=== PATIENT | female | born 1940 | race Hispanic/Latino ===

== ENCOUNTER 2021-07-24 13:28 | Inpatient (IN) | payer MEDICARE, OTHER ==
[~2021-07-24] VITALS: Ht 149.9 cm; Wt 53.5 kg
[~2021-07-24 13:28] MED LIST: ANASTROZOLE1 MG PO; OMEPRAZOLE40 MG PO; PAROXETINE HCL10 MG PO; PRAVASTATIN SOD40 MG PO
[2021-07-24 14:19] LABS: BASOPHILS % 0.3 % (0.0-1.0); EOSINOPHILS % 0.3 % (0.0-6.0); HEMATOCRIT 29.3 % (34.2-44.1); HEMOGLOBIN 8.8 g/dL (12.0-16.0); LYMPHOCYTES # (AUTO) 1.1 (1.0-3.2); LYMPHOCYTES % 18.2 % (18.0-39.1); MEAN CORPUSCULAR HEMOGLOBIN 23.1 pg (28-32); MEAN CORPUSCULAR VOLUME 76.9 fL (81-99); MONOCYTES # (AUTO) 0.7 (0.2-0.8); MONOCYTES % 11.2 % (4.4-11.3); NEUTROPHILS # (AUTO) 4.2 (2.1-6.9); NEUTROPHILS % 69.7 % (38.7-80.0); PLATELET COUNT 292 x10e3/uL (140-360); RED BLOOD COUNT 3.81 x10e6/uL (3.6-5.1); RED CELL DISTRIBUTION WIDTH 16.6 % (11.7-14.4)
[2021-07-24] MEDS ORDERED: HYDROCODONE/APAP 5MG-325MG TAB PO ONE (14:30)
[2021-07-24 14:36] LABS: INR 0.95; PROTHROMBIN TIME 13.6 seconds (11.9-14.5)
[2021-07-24 14:37] LABS: PARTIAL THROMBOPLASTIN TIME 27.4 seconds (23.8-35.5)
[2021-07-24 14:45] LABS: ALBUMIN 3.9 g/dL (3.5-5.0); ALBUMIN/GLOBULIN RATIO 1.1 (0.8-2.0); ANION GAP 13.5 mmol/L (8-16); CALCIUM 9.1 mg/dL (8.4-10.2); CREATININE, SERUM 0.82 mg/dL (0.57-1.11); POTASSIUM 3.5 mmol/L (3.5-5.1)
[2021-07-24 14:51] LABS: CREATINE KINASE MB 2.2 ng/mL (0-5.0)
[2021-07-24] MEDS ORDERED: Morphine 2mg Syringe 2 MG/ML SYR IV PRN (17:00)
[2021-07-24] MEDS ORDERED: SODIUM CHLORIDE 0.9% 50ML 50 ML ONE (17:48)
[2021-07-24] MEDS ORDERED: IOPAMIDOL 370 MG/ML 100 ML INFUS..BTL INJ ONE (17:48)
[2021-07-24 18:46] VITALS: BP 148/51
[2021-07-24] MEDS: SODIUM CHLORIDE 0.9% 1000ML 1,000 ML IV SCH ×2 (19:36→20:53)
[2021-07-24] MEDS: ONDANSETRON HCL INJ 2MG/ML 2ML 2 MG/ML VIAL IV PRN ×2 (19:47→20:53)
[2021-07-24 19:50] VITALS: BP 126/54
[2021-07-24 20:00] VITALS: BP 126/54
[2021-07-24] MEDS ORDERED: NAMENDA10 MG PO (20:11)
[2021-07-24 22:54] LABS: % IRON SATURATION 3 % (15-50); IRON 15 ug/dL (50-170); TOTAL IRON BINDING CAPACITY 470 ug/dL (261-478); TRANSFERRIN 336 mg/dL (180-382)
[2021-07-25] VITALS (7 sets, daily range): BP systolic 105–150; BP diastolic 42–59
[2021-07-25] MEDS: Pantoprazole IV 40 MG in SODIUM CHLORIDE 0.9% 50ML 50 ML IV SCH ×7 (00:14→23:00)
[2021-07-25] MEDS: DEXTROSE 5%/0.45% SOD CHL 1,000 ML IV SCH ×2 (00:20→13:19)
[2021-07-25 05:33] LABS: BASOPHILS % 0.2 % (0.0-1.0); EOSINOPHILS # (AUTO) 0.1 (0.0-0.4); EOSINOPHILS % 1.5 % (0.0-6.0); HEMOGLOBIN 7.2 g/dL (12.0-16.0); LYMPHOCYTES # (AUTO) 1.2 (1.0-3.2); LYMPHOCYTES % 24.6 % (18.0-39.1); MEAN CORPUSCULAR VOLUME 76.7 fL (81-99); MONOCYTES # (AUTO) 0.6 (0.2-0.8); MONOCYTES % 12.5 % (4.4-11.3); NEUTROPHILS # (AUTO) 2.9 (2.1-6.9); PLATELET COUNT 243 x10e3/uL (140-360); RED BLOOD COUNT 3.13 x10e6/uL (3.6-5.1); RED CELL DISTRIBUTION WIDTH 16.4 % (11.7-14.4)
[2021-07-25 05:46] LABS: ANION GAP 11.6 mmol/L (8-16); CREATININE, SERUM 0.7 mg/dL (0.57-1.11); POTASSIUM 3.6 mmol/L (3.5-5.1)
[2021-07-25] MEDS: IRON SUCROSE 100 MG in SODIUM CHLORIDE 0.9% 100 ML 100 ML IV SCH (10:05)
[2021-07-25] MEDS ORDERED: PROPOFOL IV EMULSION 10 MG/ML 20 ML VIAL ONE (13:15)
[2021-07-25] MEDS: MEMANTINE 10 MG TAB PO SCH (17:00)
[2021-07-25] MEDS: PRAVASTATIN 20 MG TAB PO SCH (21:41)
[2021-07-26] VITALS (7 sets, daily range): BP systolic 127–142; BP diastolic 42–59
[2021-07-26] MEDS: DEXTROSE 5%/0.45% SOD CHL 1,000 ML IV SCH ×3 (00:45→20:49)
[2021-07-26 05:14] LABS: BASOPHILS % 0.8 % (0.0-1.0); EOSINOPHILS # (AUTO) 0.1 (0.0-0.4); EOSINOPHILS % 2.7 % (0.0-6.0); HEMATOCRIT 24.7 % (34.2-44.1); HEMOGLOBIN 7.3 g/dL (12.0-16.0); LYMPHOCYTES % 27.5 % (18.0-39.1); MEAN CORPUSCULAR HGB CONC 29.6 g/dL (31-35); MEAN CORPUSCULAR VOLUME 77.7 fL (81-99); MONOCYTES # (AUTO) 0.4 (0.2-0.8); MONOCYTES % 11.3 % (4.4-11.3); NEUTROPHILS # (AUTO) 2.1 (2.1-6.9); NEUTROPHILS % 57.4 % (38.7-80.0); PLATELET COUNT 245 x10e3/uL (140-360); RED BLOOD COUNT 3.18 x10e6/uL (3.6-5.1); RED CELL DISTRIBUTION WIDTH 16.5 % (11.7-14.4)
[2021-07-26 05:32] LABS: BLOOD UREA NITROGEN < 5 mg/dL (7-26); BUN/CREATININE RATIO 7 (6-25); CALCIUM 7.4 mg/dL (8.4-10.2); CARBON DIOXIDE 22 mmol/L (22-29); CHLORIDE 110 mmol/L (98-107); CREATININE, SERUM 0.73 mg/dL (0.57-1.11); EST GLOMERULAR FILTRATION RATE 77 ML/MIN (60-); GLUCOSE 399 mg/dL (74-118); SODIUM 137 mmol/L (136-145)
[2021-07-26] MEDS: Pantoprazole IV 40 MG in SODIUM CHLORIDE 0.9% 50ML 50 ML IV SCH ×4 (05:45→23:00)
[2021-07-26] MEDS ORDERED: PANTOPRAZOLE SOD 40 MG TABEC PO SCH (09:00)
[2021-07-26] MEDS ORDERED: POTASSIUM CHLORIDE 10MEQ EA PO ONE (09:45)
[2021-07-26] MEDS: MEMANTINE 10 MG TAB PO SCH ×2 (10:37→16:56)
[2021-07-26] MEDS: IRON SUCROSE 100 MG in SODIUM CHLORIDE 0.9% 100 ML 100 ML IV SCH (10:37)
[2021-07-26] MEDS: ANASTROZOLE 1 MG TAB PO SCH (10:37)
[2021-07-26] MEDS: PAROXETINE HCL 20 MG TAB PO SCH (10:38)
[2021-07-26] MEDS: PRAVASTATIN 20 MG TAB PO SCH (20:49)
[2021-07-27 00:09] VITALS: BP 143/57
[2021-07-27 04:57] LABS: BASOPHILS % 0.5 % (0.0-1.0); EOSINOPHILS # (AUTO) 0.1 (0.0-0.4); HEMATOCRIT 25.1 % (34.2-44.1); HEMOGLOBIN 7.5 g/dL (12.0-16.0); LYMPHOCYTES # (AUTO) 1.4 (1.0-3.2); MEAN CORPUSCULAR HEMOGLOBIN 22.8 pg (28-32); MEAN CORPUSCULAR HGB CONC 29.9 g/dL (31-35); MEAN CORPUSCULAR VOLUME 76.3 fL (81-99); MONOCYTES # (AUTO) 0.5 (0.2-0.8); MONOCYTES % 14.1 % (4.4-11.3); NEUTROPHILS # (AUTO) 1.6 (2.1-6.9); NEUTROPHILS % 43.9 % (38.7-80.0); PLATELET COUNT 259 x10e3/uL (140-360); RED BLOOD COUNT 3.29 x10e6/uL (3.6-5.1); RED CELL DISTRIBUTION WIDTH 16.4 % (11.7-14.4)
[2021-07-27] MEDS: DEXTROSE 5%/0.45% SOD CHL 1,000 ML IV SCH ×2 (05:13→12:15)
[2021-07-27] MEDS: Pantoprazole IV 40 MG in SODIUM CHLORIDE 0.9% 50ML 50 ML IV SCH ×3 (05:13→11:45)
[2021-07-27 05:20] VITALS: BP 153/56
[2021-07-27 05:20] LABS: ANION GAP 8.4 mmol/L (8-16); BLOOD UREA NITROGEN < 5 mg/dL (7-26); CALCIUM 8.1 mg/dL (8.4-10.2); CARBON DIOXIDE 25 mmol/L (22-29); CHLORIDE 112 mmol/L (98-107); CREATININE, SERUM 0.69 mg/dL (0.57-1.11); EST GLOMERULAR FILTRATION RATE 82 ML/MIN (60-); GLUCOSE 116 mg/dL (74-118); POTASSIUM 3.4 mmol/L (3.5-5.1); SODIUM 142 mmol/L (136-145)
[2021-07-27 05:22] LABS: BUN/CREATININE RATIO 7 (6-25)
[2021-07-27 07:48] VITALS: BP 149/58
[2021-07-27 08:05] VITALS: BP 149/58
[2021-07-27] MEDS: IRON SUCROSE 100 MG in SODIUM CHLORIDE 0.9% 100 ML 100 ML IV SCH (08:45)
[2021-07-27] MEDS: PAROXETINE HCL 20 MG TAB PO SCH (08:47)
[2021-07-27] MEDS: MEMANTINE 10 MG TAB PO SCH (08:47)
[2021-07-27] MEDS: ANASTROZOLE 1 MG TAB PO SCH (08:47)
[2021-07-27 10:56] VITALS: BP 145/53
[2021-07-27] MEDS ORDERED: CARAFATE1 GM PO (12:28)
[2021-07-27] MEDS ORDERED: PANTOPRAZOLE SO40 MG PO (12:28)
[2021-07-27] MEDS ORDERED: HEMOCYTE PLUS1 EACH PO (12:28)
== END 2021-07-27 12:54 | disposition home or self-care (01) | DRG 379 ==
LOC: ER 13:32 → ERHOLD 16:49 → MED/SURG 18:42
PROC: 0DB78ZX Excision of Stomach, Pylorus, Via Natural or Artificial Opening Endoscopic, Diagnostic (ICD-10-PCS; 2021-07-25)
PROC: 0DB68ZX Excision of Stomach, Via Natural or Artificial Opening Endoscopic, Diagnostic (ICD-10-PCS; principal; 2021-07-25 17:42)
DX: K29.71 Gastritis, unspecified, with bleeding (principal); D50.0 Iron deficiency anemia secondary to blood loss (chronic); F32.9 Major depressive disorder, single episode, unspecified; E87.6 Hypokalemia; F41.9 Anxiety disorder, unspecified; E11.9 Type 2 diabetes mellitus without complications; K44.9 Diaphragmatic hernia without obstruction or gangrene; K20.91 Esophagitis, unspecified with bleeding; Z20.822 Contact with and (suspected) exposure to COVID-19
CPT/HCPCS: 36415; 43239; 70450; 71045; 71275; 74174; 80048; 80053; 82550; 82553; 82607; 82746; 82948; 83540; 83880; 84466; 84484; 85025; 85045; 85610; 85730; 86850; 86900; 88305; 88312; 93005; 99284; J1756; J2405; J7030; Q9967; U0002

== ENCOUNTER → 2021-09-18 | Outpatient (CLI) | payer MEDICARE, OTHER ==
[~2021-09-18] MED LIST changes: +CARAFATE1 GM PO; +HEMOCYTE PLUS1 EACH PO; +NAMENDA10 MG PO; +PANTOPRAZOLE SO40 MG PO
== END ==
LOC: DX 10:32
PROVIDERS: ATTEND Surgery
DX: K21.9 Gastro-esophageal reflux disease without esophagitis (principal); K44.9 Diaphragmatic hernia without obstruction or gangrene; Z20.822 Contact with and (suspected) exposure to COVID-19
CPT/HCPCS: 74246; U0002

== ENCOUNTER → 2022-02-27 | Outpatient (CLI) | payer MEDICARE, OTHER | LOC: CT 14:24 | PROVIDERS: ATTEND Family Medicine | DX: S09.90XA Unspecified injury of head, initial encounter (principal) | CPT/HCPCS: 70450; 70486 ==